=== PATIENT | female | born 1960 | race Caucasian/White ===

== ENCOUNTER 2022-11-05 14:39 | Outpatient (CLI) | payer MEDICARE, SELFPAY ==
--- NOTE | 2022-11-05 | CTR_ITS ---
PROCEDURE INFORMATION: Exam: CT Abdomen And Pelvis Without Contrast Exam date and time: 11/05/2022 3:40 PM Age: 62 years old Clinical indication: Constipation; Abdominal pain; Generalized; Additional info: Diffuse abd pain TECHNIQUE: Imaging protocol: Computed tomography of the abdomen and pelvis without contrast. Total images: 231 Radiation optimization: All CT scans at this facility use at least one of these dose optimization techniques: automated exposure control; mA and/or kV adjustment per patient size (includes targeted exams where dose is matched to clinical indication); or iterative reconstruction. COMPARISON: CR XR KUB [id number] 09/17/2022 9:32 AM RADIATION DOSE METRICS: Total DLP (mGy-cm): 1238.94 FINDINGS: Lungs: Benign granulomatous disease of the lung is noted. Liver: Normal. No mass. Gallbladder and bile ducts: Prior cholecystectomy noted. Pancreas: Normal. No ductal dilation. Spleen: Incidental splenic granulomata are noted. Adrenal glands: Normal. No mass. Kidneys and ureters: Normal. No hydronephrosis. Stomach and bowel: Moderate stool burden. Appendix: No evidence of appendicitis. Intraperitoneal space: Unremarkable. No free air. No significant fluid collection. Vasculature: Incidental phleboliths noted. Mild atherosclerotic disease is evident. Lymph nodes: Unremarkable. No enlarged lymph nodes. Urinary bladder: Unremarkable as visualized. Reproductive: Prior hysterectomy noted. Bones/joints: Multilevel degenerative disc disease is noted with vacuum phenomenon. Osteophytes are noted extending from the vertebrae. No acute spinal pathology is detected. Facet joint degenerative changes are present. Soft tissues: Unremarkable. CT/CT abdomen pelvis wo con [id number] IMPRESSION: 1. Moderate stool burden. 2. No acute intra-abdominal pathology.
== END 2022-11-05 14:40 | disposition home or self-care (01) ==
LOC: RAD 14:40
PROVIDERS: Visit Provider Family Medicine
DX: R10.84 Generalized abdominal pain (principal)
CPT/HCPCS: 74176

== ENCOUNTER → 2023-01-04 10:59 | Outpatient (BNVA) | payer MEDICARE, SELFPAY | PROVIDERS: PCP Family Medicine; Referring Provider Family Medicine; Visit Provider Specialist | DX: G43.711 Chronic migraine without aura, intractable, with status migrainosus (principal); I20.0 Unstable angina; K59.00 Constipation, unspecified; E66.01 Morbid (severe) obesity due to excess calories; Z86.73 Personal history of transient ischemic attack (TIA), and cerebral infarction without residual deficits; Z82.49 Family history of ischemic heart disease and other diseases of the circulatory system | CPT/HCPCS: 99205 ==

== ENCOUNTER 2023-02-26 06:55 | Emergency (ER) | payer MEDICARE, SELFPAY ==
--- NOTE | 2023-02-26 | CT_ITS ---
WS: [id number] PROCEDURE INFORMATION: Exam: CT Head Without Contrast Exam date and time: 02/26/2023 7:33 AM Age: 62 years old Clinical indication: Injury or trauma; Fall; Blunt trauma (contusions or hematomas); With loss of consciousness; Loss of consciousness for 30 minutes or less; Injury date: 2am today; Additional info: Closed head injury TECHNIQUE: Imaging protocol: Computed tomography of the head without contrast. Radiation optimization: All CT scans at this facility use at least one of these dose optimization techniques: automated exposure control; mA and/or kV adjustment per patient size (includes targeted exams where dose is matched to clinical indication); or iterative reconstruction. REPORTING DATA: Count of CT and Cardiac NM exams in prior 12 months: This patient has received [address] and 0 known cardiac nuclear medicine studies in the 12 months prior to the current study. COMPARISON: No relevant prior studies available. RADIATION DOSE METRICS: Total DLP (mGy-cm): 1119.14 FINDINGS: Brain: No acute intracranial hemorrhage or mass effect. There is prominent decreased attenuation in the periventricular white matter, likely from microvascular disease. No definite acute infarct by CT. MRI could be more sensitive/specific for detection, as clinically directed. Cerebral ventricles: Ventricle size is normal for age. Paranasal sinuses: Minimal mucosal thickening in the sphenoid sinus. Included paranasal sinuses otherwise appear essentially clear. Mastoid air cells: No significant acute finding. Bones/joints: No definite acute skull fracture. Soft tissues: Evidence for prominent soft tissue injury/scalp hematoma in the high right occipital region. Vasculature: Vascular calcifications in the internal carotid arteries. CT/CT head wo con* [id number] IMPRESSION: 1. No acute intracranial hemorrhage or mass effect. 2. Changes of microvascular disease. 3. No definite acute infarct by CT, see above. 4. Other findings discussed above.
[2023-02-26 07:01] VITALS: BP 166/102; PULSE 69; RESP 20; TEMP 36.5; O2SAT 98
[2023-02-26 07:06] VITALS: BP 169/102; BP 177/102; BP 183/96
--- NOTE | 2023-02-26 07:21 | XR_ITS ---
WS: [id number] XR cervical spine 3V* [id number] REASON FOR EXAM: neck pain FINDINGS: Difficult evaluation due to body habitus. Normal lordosis and alignment of the cervical spine. Odontoid and vertebral bodies are intact without significant abnormality. Mild narrowing of the intervertebral disc spaces C4-C7. Normal facet joint alignment. XR/XR cervical spine 3V* [id number] IMPRESSION: Somewhat limited examination. Degenerative spondylosis with no acute abnormality identified.
--- NOTE | 2023-02-26 07:21 | XR_ITS ---
WS: [id number] XR chest 1V portable [id number] REASON FOR EXAM: dyspnea/cough FINDINGS: Moderate tortuosity and ectasia of the thoracic aorta. Normal heart size. No active pulmonary parenchymal or pleural disease. Moderate degenerative spondylosis in the mid and lower thoracic spine. XR/XR chest 1V portable [id number] IMPRESSION: No acute chest abnormality.
--- NOTE | 2023-02-26 07:21 | CT_ITS ---
WS: [id number] CT HEAD NONCONTRAST HISTORY: closed head injury TECHNIQUE: Contiguous axial imaging performed through the brain in 2.5 mm imaging. Bone and soft tiss ue windows. Sagittal and coronal reformats reviewed. All CT scans at [facility] use at least one of these dose optimization techniques: automated exposure control; mA and/or kV adjustment per pa tient size (includes targeted exams where dose is matched to clinical indication); or iterative recon struction. DLP: 1119.14 mGy.cm COMPARISON: None available. No acute intracranial hemorrhage, midline shift or mass effect. No significant atrophy. There is moderate low attenuation within the white matter. White matter signa l abnormalities diffuse and bilateral. Ventricles: Normal size with no hydrocephalus. Paranasal sinuses: As visualized are clear. Mastoid air cells: Well pneumatized. Calvarium and scalp: No skull fracture. There is a large acute scalp hematoma centered towards the RIGHT parietal vertex of variable density.
--- NOTE | 2023-02-26 07:37 | W.ED.FALL ---
HPI - Fall General: Chief Complaint: Fall Stated Complaint: fall/back of head/mouth pain Time Seen by Provider: 02/26/23 06:58 Source: patient Mode of arrival: ambulatory History of Present Illness: 62-year-old female presents to the emergency room after a fall. She had gotten up at night she states she usually up many out most of the evenings she does not sleep well she was going to her walk-in closet to get something warmer to wear when she got lightheaded and dizzy that she simply passed out she woke up on the floor states she has a bump on the back of her head her neck does not hurt she has been nauseous but has not vomited. She does take aspirin no other anticoagulants. She is not had any vomiting or diarrhea no history of arrhythmias no history of heart disease she does states she had a TIA several years ago but no further episodes since she is not having difficulty speech swallowing vision or balance now. No previous syncopal episodes in the past. MD complaint: fall Onset (ago): minute(s) Fall from: standing Fall witnessed: no Place fall occurred: home Loss of consciousness: Yes Prolonged down time: unclear Location of injury: head Associated symptoms-after fall: Denies abdominal pain, chest pain, confusion, difficulty walking, headache(s), hematuria, lightheadedness, neck pain, numbness, short of breath, vertigo or weakness Review of Systems Const: Denies: fever(s), chills, body aches, change in appetite, fatigue or malaise ENMT: Denies: throat pain, ear or mastoid pain, nasal discharge or nasal congestion Card: Denies: chest pain or lightheadedness Resp: Denies: dyspnea, productive cough or non-productive cough GI: Denies: abdominal pain, nausea or vomiting : Denies: flank pain, dysuria, urinary frequency, urinary urgency or hematuria Musc: Denies: neck pain Skin/Breast: Denies: rash or pruritus Neuro: Denies: headache(s), difficulty walking, vertigo or confusion Physical Exam Const: GENERAL APPEARANCE: cooperative and comfortable ORIENTATION/CONSCIOUSNESS: Yes awake, Yes oriented to person, Yes oriented to place and Yes oriented to time HENMT: COMMON NORMALS: normocephalic and hearing grossly normal bilaterally HEAD & SCALP: normocephalic Resp: COMMON NORMALS: normal respiratory effort, No retractions, No use of accessory muscles and clear to auscultation bilaterally AUSCULTATION: clear to auscultation bilaterally Cardio: COMMON NORMALS: regular rate, regular rhythm and No murmurs present (Cardio) RATE: regular rate RHYTHM: regular rhythm GI: COMMON NORMALS: Soft to palpation and No hepatosplenomegaly present AUSCULTATION: Yes normoactive bowel sounds PALPATION: Yes Soft to palpation, No Tenderness to palpation present (GI), No Guarding due to palpation present (GI) and Yes No hepatosplenomegaly present Extremity: COMMON NORMALS: normal to inspection, capillary refill normal, no clubbing, cyanosis or edema, no calf tenderness and no pedal edema Neuro: SENSORIUM/ORIENTATION: Yes oriented to person, Yes oriented to place and Yes oriented to time Skin: COMMON NORMALS: no rashes or lesions noted GENERAL SKIN EXAM: no rashes or lesions noted Course Vital Signs: Vital signs: Vital Signs Temperature 97.7 F 02/26/23 07:01 Pulse Rate 60 02/26/23 10:02 Respiratory Rate 17 02/26/23 10:02 Blood Pressure 173/104 02/26/23 10:02 Pulse Oximetry 98 02/26/23 10:02 Oxygen Delivery Me thod 02/26/23 08:09 MDM - Fall Medical Decision Making Labs and imaging reviewed orthostatics normal patient is feeling fine she does not have any intracranial bleeding on her CT her C-spine is cleared we will discharge her home we will get a call in amlodipine for 5 mg daily and have her follow-up with her primary care doctor. Medical Records I reviewed the patient's medical records. Lab Data I reviewed the patient's lab results. 02/26/23 07:47 02/26/23 07:47 Radiology Impressions Cervical Spine X-Ray 02/26/23 07:21 IMPRESSION: Somewhat limited examination. Degenerative spondylosis with no acute abnormality identified. Chest X-Ray 02/26/23 07:21 IMPRESSION: No acute chest abnormality. Head CT 02/26/23 07:21 IMPRESSION: 1. No acute intracranial hemorrhage or edema. 2. Large acute RIGHT parietal scalp hematoma at the vertex. 3. Moderate small vessel ischemic type changes. Laboratory Results WBC 9.9 10^3/uL (4.0-10.0) 02/26/23 07:47 RBC 4.95 10^6/uL (4.1-5.3) 02/26/23 07:47 Hgb 14.4 g/dL (11.5-15.3) 02/26/23 07:47 Hct 44.4 % (37.0-47.0) 02/26/23 07:47 MCV 89.7 fl (81-99) 02/26/23 07:47 MCH 29.1 pg (28.0-34.0) 02/26/23 07:47 MCHC 32.4 g/dL (30.0-36.0) 02/26/23 07:47 RDW 12.6 % (12.1-15.1) 02/26/23 07:47 Plt Count 212 10^3/cmm (130-400) 02/26/23 07:47 MPV 9.7 fL (7.4-10.4) 02/26/23 07:47 Neut % (Auto) 80.0 % 02/26/23 07:47 Lymph % (Auto) 12.4 % 02/26/23 07:47 [place] % (Auto) 5.3 % 02/26/23 07:47 Eos % (Auto) 1.3 % 02/26/23 07:47 Baso % (Auto) 0.7 % 02/26/23 07:47 Neut # (Auto) 7.91 10^3/uL (1.8-7.7) H 02/26/23 07:47 Lymph # (Auto) 1.2 10^3/uL (0.8-4.8) 02/26/23 07:47 [place] # (Auto) 0.5 10^3/uL (0.2-0.9) 02/26/23 07:47 Eos # (Auto) 0.1 10^3/uL (0.0-0.8) 02/26/23 07:47 Baso # (Auto) 0.1 10^3/uL (0.0-0.1) 02/26/23 07:47 Nucleated RBC % (auto) 0 % 02/26/23 07:47 Nucleated RBCs # 0.0 /100WBC 02/26/23 07:47 Sodium 138 mmol/L (136-145) 02/26/23 07:47 Potassium 4.1 mmol/L (3.5-5.1) 02/26/23 07:47 Chloride 103 mmol/L (98-107) 02/26/23 07:47 Carbon Dioxide 23 mmol/L (22-29) 02/26/23 07:47 Anion Gap 16.1 (5-19) 02/26/23 07:47 BUN 15 mg/dL (8-23) 02/26/23 07:47 Creatinine 0.9 mg/dL (0.5-0.9) 02/26/23 07:47 GFR Calculation 63.7 mL/min (90-130) L 02/26/23 07:47 Glucose 123 mg/dL (65-115) H 02/26/23 07:47 Calculated Osmolality 288 mOsm/kg (285-295) 02/26/23 07:47 Calcium 9.8 mg/dL (8.5-10.5) 02/26/23 07:47 Total Bilirubin 0.2 mg/dL (0.15-1.2) 02/26/23 07:47 AST 27 U/L (0-32) 02/26/23 07:47 ALT 30 U/L (0-33) 02/26/23 07:47 Alkaline Phosphatase 101 U/L (35-105) 02/26/23 07:47 Troponin T Baseline 9 ng/L (0-10) 02/26/23 07:47 Troponin T 120 Minute 8.94 ng/L (0-10) 02/26/23 09:30 Delta Troponin T -0.06 ABS# (0-10) L 02/26/23 09:30 Total Protein 7.7 g/dL (6.6-8.7) 02/26/23 07:47 Albumin 4.5 g/dL (3.5-5.2) 02/26/23 07:47 Globulin 3.2 g/dL (1.3-4.6) 02/26/23 07:47 Discharge Plan Discharge Patient Disposition: Home Clinical Impression: Syncope Condition: Stable Prescriptions: No Action topiramate 100 mg tablet 100 mg PO DAILY gabapentin 300 mg capsule 300 mg PO DAILY aspirin 325 mg tablet 325 mg PO DAILY coenzyme Q10 [Co Q-10] 200 mg capsule 200 mg PO DAILY cholecalciferol (vitamin D3) 50 mcg (2,000 unit) capsule 50 mcg PO DAILY pramipexole 0.25 mg tablet 0.25 mg PO DAILY melatonin 10 mg tablet 10 mg PO DAILY rosuvastatin 20 mg tablet 20 mg PO DAILY buspirone 7.5 mg tablet 7.5 mg PO BID Emgality Pen 120 mg/mL pen injector 240 mg SUBCUT ONCE Qty: 2 0RF Discharge Orders: Discharge ED (Routine); Ordered 02/26/23 Ordered By: Carlos Manuel Lunsford Referrals: Fred Diaz MD [Primary Care Provider] - Discharge Diet: Usual diet Discharge Activity: Resume usual activity Patient Instructions: Opioid Safety, Pain Management Activity Restrictions/Additional Instructions: You are seen today after syncopal episode. CT of your head and x-rays your neck were normal and the rest of your laboratory studies were unremarkable. We will discharge you home with an outpatient echocardiogram and a 48-hour Holter monitor if you have recurrent symptoms return to the emergency room. Coding Level of Care Code ED Information Technology Advisor for Andreina Ledbetter
[2023-02-26 07:56] LABS: Basophils # 0.1 10^3/uL (0.0-0.1); Basophils % 0.7 %; Eosinophils # 0.1 10^3/uL (0.0-0.8); Eosinophils % 1.3 %; Hematocrit 44.4 % (37.0-47.0); Hemoglobin 14.4 g/dL (11.5-15.3); Lymphocytes # 1.2 10^3/uL (0.8-4.8); Lymphocytes % 12.4 %; Mean Corpuscular HGB Conc 32.4 g/dL (30.0-36.0); Mean Corpuscular Hemoglobin 29.1 pg (28.0-34.0); Mean Corpuscular Volume 89.7 fl (81-99); Mean Platelet Volume 9.7 fL (7.4-10.4); Monocytes # 0.5 10^3/uL (0.2-0.9); Monocytes % 5.3 %; Neutrophils # 7.91 10^3/uL (1.8-7.7); Nucleated Red Blood Cells % 0 %; Platelet Count 212 10^3/cmm (130-400); Red Blood Count 4.95 10^6/uL (4.1-5.3); Red Cell Distribution Width 12.6 % (12.1-15.1); White Blood Count 9.9 10^3/uL (4.0-10.0)
[2023-02-26 08:09] VITALS: O2SAT 96
[2023-02-26 08:12] LABS: Alanine Aminotransferase 30 U/L (0-33); Albumin Level 4.5 g/dL (3.5-5.2); Alkaline Phosphatase 101 U/L (35-105); Anion Gap 16.1 (5-19); Aspartate Amino Transferase 27 U/L (0-32); Blood Urea Nitrogen 15 mg/dL (8-23); Calcium 9.8 mg/dL (8.5-10.5); Carbon Dioxide 23 mmol/L (22-29); Chloride 103 mmol/L (98-107); Globulin 3.2 g/dL (1.3-4.6); Glomerular Filtration Rate 63.7 mL/min (90-130); Glucose 123 mg/dL (65-115); Osmolality Calculated 288 mOsm/kg (285-295); Potassium 4.1 mmol/L (3.5-5.1); Sodium 138 mmol/L (136-145); Total Bilirubin 0.2 mg/dL (0.15-1.2); Total Protein 7.7 g/dL (6.6-8.7)
[2023-02-26 08:13] LABS: Troponin(5th) Baseline 9 ng/L (0-10)
--- NOTE | 2023-02-26 08:30 | ECG_ITS ---
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 Measurements Intervals [place] Rate: 50 P: 16 MT: 194 QRS: 45 QRSD: 100 T: 59 QT: 415 QTc: 379 Interpretive Statements SINUS BRADYCARDIA No previous ECG available for comparison Electronically Signed On 02-26-2023 21:23:37 CDT by Catalina Naik M.D. [id number]
--- NOTE | 2023-02-26 09:22 | ECG_ITS ---
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 Measurements Intervals [place] Rate: 51 P: -14 [place]: 164 QRS: 29 QRSD: 89 T: 78 QT: 407 QTc: 377 Interpretive Statements SINUS BRADYCARDIA Compared to ECG 02/26/2023 08:30:16 No significant changes Electronically Signed On 02-26-2023 21:39:30 CDT by Catalina Naik M.D. [id number]
[2023-02-26 09:56] LABS: Troponin 5 2HR 8.94 ng/L (0-10)
[2023-02-26 10:02] VITALS: BP 173/104; PULSE 60; RESP 17; O2SAT 98
[2023-02-26 10:02] LABS: Troponin 5 2HR Delta -0.06 ABS# (0-10)
--- NOTE | 2023-03-01 09:04 | DCPLANNER ---
Addendum entered by Zabrina Hills 03/25/23 09:30: Patient had an appointment with heart care - patient did not attend appointment Patient had an echo scheduled - patient did attend appointment. Addendum entered by Zabrina Hills 03/04/23 07:42: Patient has a follow up appointment scheduled for Wednesday, March 22, 2023 at heart care for a 48 hour halter monitor. Original Note: manager leadership development had message to schedule an outpatient echo cardiogram and a 48 hour halter monitor for patient. manager leadership development faxed signed orders to centralized scheduling and heart care, who will call patient with appointment information.
== END 2023-02-26 10:03 | disposition home or self-care (01) ==
PROVIDERS: Emergency Provider Family Medicine; PCP Family Medicine
DX: R55 Syncope and collapse (principal); Z79.82 Long term (current) use of aspirin
CPT/HCPCS: 36415; 70450; 71045; 72040; 80053; 84484; 85025; 93005; 99285

== ENCOUNTER 2023-03-12 08:11 | Outpatient (CLI) | payer MEDICARE, SELFPAY ==
--- NOTE | 2023-03-12 08:33 | USCV_ITS ---
Nadine Gamez Age: 62 Gender: F : 1960 Exam Date: 03/12/2023 09:09 Ordering Phys: Carlos Manuel Lunsford DO Technologist: ERICA [place] [facility] [place]: SYNC[place] BP: 149 / 90 HR: 53 Rhythm: Sinus Technical Quality: Adequate MEASUREMENTS (Male / Female) Normal Values 2D ECHO LVOT Diameter 2.0 cm LV Ejection Fraction MOD 2C 66.2 % LV Ejection Fraction 2C AL 68.1 % LA Diameter 2.7 cm LA Width 2.6 cm LA Height 4.5 cm RA Width 2.4 cm RA Height 3.6 cm Aorta at Sinotubular Diameter 1.8 cm IVC Diameter 1.3 cm M-MODE Aortic Annulus Diameter 2.5 cm LA Ao Ratio MM 0.9 MV E Point Septal Separation 1.4 cm DOPPLER AV Peak Velocity 165.0 cm/s LVOT Peak Velocity 111.0 cm/s AV Area Cont Eq vti 2.2 cm squared AV Area Cont Eq pk 2.1 cm squared MV Peak Velocity 103.0 cm/s MV Area PHT 3.5 cm squared Mitral E to A Ratio 0.8 MV E' Velocity 49.0 cm/s Mitral E to MV E' Ratio 8.7 Mitral E to LV E' Lateral Ratio 7.6 Mitral E to LV E' Septal Ratio 10.1 TR Peak Velocity 216.8 cm/s TR Peak Gradient 18.8 mmHg TR Mean Velocity 186.9 cm/s TR Mean Gradient 14.7 mmHg TR Velocity Time Integral 79.4 cm TV Peak E Velocity 63.0 cm/s Right Atrial Pressure 3.0 mmHg Pulmonary Artery Systolic Pressu 21.8 mmHg FINDINGS Left Ventricle Normal left ventricular size, systolic function and wall thickness, with no regional wall motion abnormalities. Grade I/IV diastolic dysfunction (abnormal relaxation filling pattern), normal to mildly elevated filling pressures. Left ventricular ejection fraction is estimated at 60 %. Right Ventricle Normal right ventricular size and systolic function. Normal right ventricular systolic pressure. Right Atrium The right atrium is normal in size. Left Atrium The left atrium is normal in size. Mitral Valve Structurally normal mitral valve. Moderate mitral valve regurgitation. Aortic Valve Structurally normal aortic valve without significant sclerosis or stenosis. There is no aortic regurgitation. Tricuspid Valve Structurally normal tricuspid valve without significant stenosis or regurgitation. Pulmonary artery systolic pressure is normal. Pulmonic Valve Pulmonic valve not well visualized. Pericardium Normal pericardium without effusion. Aorta Normal ascending aorta dimension. IVC The inferior vena cava appears normal. CONCLUSIONS Normal left ventricular size, systolic function and wall thickness, with no regional wall motion abnormalities. Grade I/IV diastolic dysfunction (abnormal relaxation filling pattern), normal to mildly elevated filling pressures. Left ventricular ejection fraction is estimated at 60 %. Structurally normal mitral valve. Moderate mitral valve regurgitation. There are no prior echocardiogram studies to compare. Dr. Kory Manrique MD (Electronically Signed) Final Date: 12 March 2023 12:29 S
== END 2023-03-12 08:12 | disposition home or self-care (01) ==
PROVIDERS: PCP Family Medicine; Visit Provider Family Medicine
DX: R55 Syncope and collapse (principal)
CPT/HCPCS: 93306

== ENCOUNTER → 2023-04-12 09:31 | Outpatient (BNVA) | payer MEDICARE, SELFPAY | PROVIDERS: PCP Family Medicine; Visit Provider Internal Medicine | DX: I20.0 Unstable angina (principal); R55 Syncope and collapse | CPT/HCPCS: 93242 ==

== ENCOUNTER → 2023-05-20 07:53 | Outpatient (BNVA) | payer MEDICARE, SELFPAY | PROVIDERS: PCP Family Medicine; Visit Provider Specialist | DX: G43.711 Chronic migraine without aura, intractable, with status migrainosus (principal); R55 Syncope and collapse; G25.81 Restless legs syndrome | CPT/HCPCS: 64615; 99214; J0585 ==

== ENCOUNTER → 2023-06-23 10:40 | Outpatient (BNVA) | payer MEDICARE, SELFPAY | PROVIDERS: PCP Family Medicine; Visit Provider Internal Medicine Cardiovascular Disease | DX: R55 Syncope and collapse (principal); G43.711 Chronic migraine without aura, intractable, with status migrainosus; I10 Essential (primary) hypertension; R00.1 Bradycardia, unspecified | CPT/HCPCS: 99203; 99204 ==

== ENCOUNTER 2023-07-15 10:19 | Outpatient (CLI) | payer MEDICARE, SELFPAY ==
--- NOTE | 2023-07-15 | ECG_ITS ---
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 Interpretive Statements NAME OF STUDY: EXERCISE SESTAMIBI STRESS TEST INDICATION: Chest Pressure, PROCEDURE: The baseline electrocardiogram showed normal sinus rhythm with normal ST-Ts. At the baseline, the patient's blood pressure was 154/97 mm Hg with a heart rate of 87. The patient exercised for 2 minutes and 26 seconds on a standard Aj protocol. Patient attained a maximum heart rate of 156 beats per minute(98% of the maximum predicted heart rate) with a blood pressure at the peak exercise of 160/109 mm Hg. The EKG at the peak exercise revealed no significant changes. Patient did not have any chest pain or any significant arrhythmis with the exercise Sestamibi was injected 1 minute prior to the peak exercise During the recovery phase, there were no new changes. Blood pressure at the end of the recovery phase was 151/101 mm Hg with a heart rate of 91 per minute. CONCLUSION: 1. No significant EKG changes with the treadmill exercise 2. No exercise-induced chest pain or cardiac arrhythmia 3. Impaired exercise tolerance, attained a maximum of 4.6 METs 4. Sestamibi/Sestamibi perfusion results pending; see separate report. Electronically Signed On 07-21-2023 14:52:40 CDT by Catalina Naik M.D. [id number]
[2023-07-15 10:30] VITALS: BMI 31.4
--- NOTE | 2023-07-15 10:49 | NMCV_ITS ---
NM lo perf SPECT r/s* [id number] Nadine Gamez Age: 62 Gender: F : 1960 Exam Date: 07/15/2023 11:33 Ordering Phys: Catalina Naik MD ([email or web address]) Technologist: ESTER Boss Exam Location: [facility] Indications: coronary angioplasty status STRESS TEST Please see separate stress [facility] for full findings IMAGE PROTOCOL Rest/Stress 1 Exercise Day Radiopharmaceutical Dose (mCi) Administration Site Administered by Rest: Tc-99m 10.5 IV ESTER Kang Sestamibi Stress:Tc-99m 32.9 IV ESTER Kang Sestamibi Rest: 15-Jul-2023 60 Discovery 630 Stress: 15-Jul-2023 30 Discovery 630 Radiopharmaceutical was injected at 86 % maximum heart rate. Images obtained in supine and prone position. SPECT RESULTS Technical Quality: Excellent Raw Data Analysis: Normal Image Corrections: No attenuation or motion correction applied Summed Stress Score: 3 Summed Rest Score: 6 Summed Difference Score: 0 PERFUSION FINDINGS Small area of slightly decreased tracer uptake in the mid and apical inferior and left ventricular apex. No significant reversibility was noted in this region. FUNCTIONAL RESULTS (calculated via Gated SPECT) Stress Image LV EF (%): 69 Stress EDV (mL):88 TID: 1.08 Stress ESV (mL):27 FUNCTIONAL FINDINGS: Segmental wall motion analysis revealing no gross wall motion normalities IMPRESSIONS 1. Myocardial perfusion imaging revealing small area of persistent decreased tracer uptake involving the inferior wall and the LV apex, suggesting myocardial scarring versus attrition artifact. 2. Normal LV ejection fraction of 69%. 3. LV wall motion analysis revealing no gross wall motion abnormalities. 4. Normal LV volume Low probability for coronary ischemia, based on the above findings. No similar previous studies are available for comparison Dr Catalina Naik MD [facility] (Electronically Signed) Final Date: 16 July 2023 16:41 S
[2023-07-15 12:15] VITALS: BP 151/100; PULSE 97
== END 2023-07-15 10:20 | disposition home or self-care (01) ==
PROVIDERS: PCP Family Medicine; Visit Provider Internal Medicine Cardiovascular Disease
DX: R07.9 Chest pain, unspecified (principal); Z98.61 Coronary angioplasty status
CPT/HCPCS: 36415; 78452; 93017; A9500

== ENCOUNTER → 2023-08-19 11:48 | Outpatient (BNVA) | payer MEDICARE, SELFPAY | PROVIDERS: PCP Family Medicine; Visit Provider Specialist | DX: G43.711 Chronic migraine without aura, intractable, with status migrainosus (principal); R55 Syncope and collapse | CPT/HCPCS: 64615; J0585 ==

== ENCOUNTER → 2023-11-08 09:29 | Outpatient (BNVA) | payer MEDICARE, SELFPAY | PROVIDERS: PCP Family Medicine; Visit Provider Internal Medicine Cardiovascular Disease | DX: I10 Essential (primary) hypertension (principal); R55 Syncope and collapse; R00.1 Bradycardia, unspecified; J11.1 Influenza due to unidentified influenza virus with other respiratory manifestations | CPT/HCPCS: 99213 ==

== ENCOUNTER → 2023-11-25 11:21 | Outpatient (BNVA) | payer MEDICARE, SELFPAY | PROVIDERS: PCP Family Medicine; Visit Provider Specialist | DX: G43.711 Chronic migraine without aura, intractable, with status migrainosus (principal) | CPT/HCPCS: 64615 ==

== ENCOUNTER 2024-02-15 10:17 | Outpatient (CLI) | payer MEDICARE, SELFPAY ==
--- NOTE | 2024-02-15 10:38 | MM_ITS ---
WS: [id number] BILATERAL 3D TOMOSYNTHESIS DIGITAL SCREENING MAMMOGRAPHY WITH CAD CLINICAL INFORMATION: SCREENING HISTORY: Screening mammogram. No current complaints. COMPARISON: None. TECHNIQUE: Bilateral CC and MLO views. FINDINGS: The breasts are composed of heterogeneous fibroglandular density tissue, which can limit the detectio n of small underlying mass lesions. No suspicious mass, asymmetry, calcifications, or architectural d istortion. No evidence of malignancy. Incidental punctate and lucent centered calcifications. IMPRESSION: MM/[place] [id number] BI-RADS: 2-Benign FOLLOW UP: 1 Year Follow-up Recommend return to annual screening mammography.
== END 2024-02-15 10:18 | disposition home or self-care (01) ==
LOC: RAD 10:20
PROVIDERS: PCP Family Medicine; Visit Provider Family Medicine
DX: Z12.31 Encounter for screening mammogram for malignant neoplasm of breast (principal); R92.30 Dense breasts, unspecified
CPT/HCPCS: 77063; 77067

== ENCOUNTER → 2024-02-24 12:13 | Outpatient (BNVA) | payer MEDICARE, SELFPAY | PROVIDERS: PCP Family Medicine; Visit Provider Specialist | DX: M96.1 Postlaminectomy syndrome, not elsewhere classified (principal); M54.81 Occipital neuralgia; G43.711 Chronic migraine without aura, intractable, with status migrainosus | CPT/HCPCS: 64615; 99213; J0585 ==

== ENCOUNTER → 2024-03-23 08:19 | Outpatient (BNVA) | payer MEDICARE, SELFPAY | PROVIDERS: PCP Family Medicine; Visit Provider Specialist | DX: M54.81 Occipital neuralgia (principal); G43.711 Chronic migraine without aura, intractable, with status migrainosus; M96.1 Postlaminectomy syndrome, not elsewhere classified | CPT/HCPCS: 64405; 64450; J1010; J3490 ==

== ENCOUNTER 2024-04-10 08:26 | Outpatient (CLI) | payer MEDICARE, SELFPAY ==
--- NOTE | 2024-04-10 08:45 | MR_ITS ---
WS: [id number] MRI CERVICAL SPINE NONCONTRAST TECHNIQUE: Sagittal T1, T2 and STIR imaging. Axial T2, gradient, and fiesta imaging. CLINICAL INFORMATION: M54.2 - Cervicalgia COMPARISON: None. FINDINGS: Straightening of the normal cervical lordosis. 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 Disc bulging wor se at C3-C4 and C4-C5 with mild central canal stenosis C3-C4 and moderate to severe central canal joey nosis C4-C5 with indentation and flattening of the cervical cord. C2-C3: Congenital segmentation anomaly. Spinal canal and foramina are patent. C3-C4: Mild disc bulging with slight effacement of the ventral thecal sac. Mild central canal stenosi s. Mild bilateral bony foraminal narrowing. Mild facet arthropathy. C4-C5: Mild disc bulge with indentation and slight flattening of the cervical cord with moderate cent ral canal stenosis. Moderate bilateral bony foraminal narrowing RIGHT greater than LEFT. Mild to mode rate facet arthropathy. C5-C6: Mild disc bulge with endplate ridging. Mild bilateral foraminal narrowing. Moderate facet arth ropathy. C6-C7: Congenital segmentation anomaly. Spinal canal and foramen are patent. C7-T1: No significant disc bulging. Spinal canal and foramen are patent. T1-T2: Mild bilateral bony foraminal narrowing. Mild facet arthropathy. Spinal canal and foramen are patent. Tiny central protrusions at T2-3 and T3-4. Small RIGHT thyroid nodule measuring 6 mm. Visualized brain stem structures: Normal. Prevertebral soft tissues: Normal. MR/MR cervical spin wo con* [id number] IMPRESSION: 1. Straightening of the normal cervical lordosis. Congenital segmentation anom kayla C2-3 and C6-7 2. Mild central canal stenosis C3-C4 with moderate to severe central canal joey nosis C4-5 with indentation and slight flattening of the cervical cord. 3. Moderate bilateral C4-5 bony foraminal narrowing. 4. Otherwise mild bony foraminal narrowing described above.
== END 2024-04-10 08:27 | disposition home or self-care (01) ==
LOC: RAD 08:31
PROVIDERS: PCP Family Medicine; Visit Provider Specialist
DX: M48.02 Spinal stenosis, cervical region (principal); Q76.49 Other congenital malformations of spine, not associated with scoliosis; M99.61 Osseous and subluxation stenosis of intervertebral foramina of cervical region
CPT/HCPCS: 72141

== ENCOUNTER → 2024-05-04 12:02 | Outpatient (BNVA) | payer MEDICARE, SELFPAY | PROVIDERS: PCP Family Medicine; Visit Provider Specialist | DX: M54.81 Occipital neuralgia (principal); G43.711 Chronic migraine without aura, intractable, with status migrainosus; M96.1 Postlaminectomy syndrome, not elsewhere classified; M76.32 Iliotibial band syndrome, left leg | CPT/HCPCS: 64405; 99214; J1010; J3490 ==

== ENCOUNTER → 2024-06-01 11:29 | Outpatient (BNVA) | payer MEDICARE, SELFPAY | PROVIDERS: PCP Family Medicine; Visit Provider Specialist | DX: M48.02 Spinal stenosis, cervical region (principal); M96.1 Postlaminectomy syndrome, not elsewhere classified; M54.81 Occipital neuralgia; G43.711 Chronic migraine without aura, intractable, with status migrainosus; R03.0 Elevated blood-pressure reading, without diagnosis of hypertension | CPT/HCPCS: 64615; 99214; J0585 ==

== ENCOUNTER → 2024-06-12 12:55 | Outpatient (BNVA) | payer MEDICARE, SELFPAY | PROVIDERS: PCP Family Medicine; Visit Provider Nurse Practitioner Family | DX: E66.01 Morbid (severe) obesity due to excess calories (principal); I10 Essential (primary) hypertension; E78.5 Hyperlipidemia, unspecified; R53.83 Other fatigue; Z76.89 Persons encountering health services in other specified circumstances; K59.01 Slow transit constipation; R23.2 Flushing | CPT/HCPCS: 80053; 80061; 84443; 85025 ==

== ENCOUNTER → 2024-06-15 12:24 | Outpatient (BNVA) | payer MEDICARE, SELFPAY | PROVIDERS: PCP Nurse Practitioner Family; Visit Provider Orthopaedic Surgery | DX: M47.892 Other spondylosis, cervical region (principal); M54.2 Cervicalgia; M47.22 Other spondylosis with radiculopathy, cervical region | CPT/HCPCS: 72040; 99204 ==

== ENCOUNTER → 2024-08-24 10:40 | Outpatient (BNVA) | payer MEDICARE, SELFPAY | PROVIDERS: PCP Nurse Practitioner Family; Visit Provider Specialist | DX: M96.1 Postlaminectomy syndrome, not elsewhere classified (principal); M54.81 Occipital neuralgia; G43.711 Chronic migraine without aura, intractable, with status migrainosus; R03.0 Elevated blood-pressure reading, without diagnosis of hypertension; F43.10 Post-traumatic stress disorder, unspecified; R53.83 Other fatigue; R59.1 Generalized enlarged lymph nodes; R55 Syncope and collapse; E55.9 Vitamin D deficiency, unspecified; M81.0 Age-related osteoporosis without current pathological fracture | CPT/HCPCS: 36415; 64615; 82607; 82652; 82746; 85651; 86160; 86162; 86200; 86235; 86255; 86376; 99214; J0585 ==

== ENCOUNTER → 2024-09-15 07:33 | Outpatient (BNVA) | payer MEDICARE, SELFPAY | PROVIDERS: PCP Nurse Practitioner Family | DX: R10.9 Unspecified abdominal pain (principal) | CPT/HCPCS: 81000 ==

== ENCOUNTER → 2024-12-08 10:06 | Outpatient (BNVA) | payer MEDICARE, SELFPAY | PROVIDERS: PCP Nurse Practitioner Family; Visit Provider Specialist | DX: G43.711 Chronic migraine without aura, intractable, with status migrainosus (principal); M47.22 Other spondylosis with radiculopathy, cervical region; M96.1 Postlaminectomy syndrome, not elsewhere classified; M54.81 Occipital neuralgia; R03.0 Elevated blood-pressure reading, without diagnosis of hypertension; F43.10 Post-traumatic stress disorder, unspecified; R53.83 Other fatigue; R59.1 Generalized enlarged lymph nodes | CPT/HCPCS: 64615; 99213; J0585 ==

== ENCOUNTER → 2025-03-16 09:26 | Outpatient (BNVA) | payer MEDICARE, SELFPAY | PROVIDERS: PCP Nurse Practitioner Family; Visit Provider Specialist | DX: M96.1 Postlaminectomy syndrome, not elsewhere classified (principal); M54.81 Occipital neuralgia; G43.711 Chronic migraine without aura, intractable, with status migrainosus; R03.0 Elevated blood-pressure reading, without diagnosis of hypertension; F43.10 Post-traumatic stress disorder, unspecified; R53.83 Other fatigue; R59.1 Generalized enlarged lymph nodes; R55 Syncope and collapse; E55.9 Vitamin D deficiency, unspecified; M81.0 Age-related osteoporosis without current pathological fracture | CPT/HCPCS: 64615; 99212; J0585; J9999 ==

== ENCOUNTER → 2025-04-24 14:31 | Outpatient (BNVA) | payer MEDICARE, SELFPAY | PROVIDERS: PCP Family Medicine; Visit Provider Family Medicine | DX: I10 Essential (primary) hypertension (principal); E78.5 Hyperlipidemia, unspecified; G25.81 Restless legs syndrome; E11.9 Type 2 diabetes mellitus without complications | CPT/HCPCS: 80053; 80061; 82728; 85025 ==

== ENCOUNTER 2025-04-27 08:09 | Outpatient (CLI) | payer MEDICARE, SELFPAY ==
--- NOTE | 2025-04-27 08:11 | MM_ITS ---
WS: [id number] BILATERAL SCREENING DIGITAL TOMOSYNTHESIS MAMMOGRAM WITH CAD HISTORY: SCREENING COMPARISON: 02/15/2024 Bilateral CC and MLO views with tomosynthesis and synthetic mammography submitted. Computer aided detection analyzed. Breast composition: The breasts are heterogeneously dense, which may obscure small masses. No suspicious masses, microcalcifications or architectural distortion. Benign calcifications in each breast. Dense asymmetries are stable. MM/MM scr tomosynthesis [id number] IMPRESSION: BI-RADS: 2 - Benign FOLLOW UP: 1 Year Follow-up
== END 2025-04-27 08:10 | disposition home or self-care (01) ==
PROVIDERS: PCP Family Medicine; Visit Provider Family Medicine
DX: Z12.31 Encounter for screening mammogram for malignant neoplasm of breast (principal); R92.333 Mammographic heterogeneous density, bilateral breasts; R92.1 Mammographic calcification found on diagnostic imaging of breast; N64.89 Other specified disorders of breast
CPT/HCPCS: 77063; 77067

== ENCOUNTER → 2025-06-14 08:52 | Outpatient (BNVA) | payer MEDICARE, SELFPAY | PROVIDERS: PCP Family Medicine; Visit Provider Specialist | DX: G43.711 Chronic migraine without aura, intractable, with status migrainosus (principal) | CPT/HCPCS: 64615; J0585; J9999 ==

== ENCOUNTER → 2025-06-29 08:22 | Outpatient (BNVA) | payer MEDICARE, SELFPAY | PROVIDERS: PCP Family Medicine; Visit Provider Student in an Organized Health Care Education/Training Program | DX: Z12.11 Encounter for screening for malignant neoplasm of colon (principal) | CPT/HCPCS: 99024; 99204 ==

== ENCOUNTER 2025-08-01 06:51 | Day surgery (SDC) | payer MEDICARE, SELFPAY ==
[2025-08-01 07:07] VITALS: BP 172/97; PULSE 62; RESP 18; TEMP 36.6; O2SAT 97; BMI 32.6
--- NOTE | 2025-08-01 07:48 | ANES.PREANE2 ---
Pre-Anesthetic Assessment Height/Weight: Height 1.73 m Weight 97.522 kg Temp Pulse Resp BP Pulse Ox O2 Del Method 97.9 F 62 18 172/97 97 Room Air 08/01/25 07:07 08/01/25 07:07 08/01/25 07:07 08/01/25 07:07 08/01/25 07:07 08/01/25 07:07 Preop Diagnosis: GERD, Screen Operation Date: 08/01/25 08:00 Proposed Procedures p EGD EGD with Biopsy [id number] G0105 Z12.11 R12(Not Applicable) - Chay Winter MD s Colonoscopy(Not Applicable) - Chay Winter MD Was Beta Bruce taken within 24 hours: Yes Was Clonidine taken within 24 hours: N/A Last intake: Intake Last Liquid Date 07/31/25 Last Liquid Time 22:00 Last Solid Date 07/28/25 Last Solid Time 15:00 Social No alcohol and No tobacco Exam alert, oriented x 3, clear to auscultation bilaterally and regular rate & rhythm Airway Cervical ROM: within normal limits Mallampati: Class II Dentition: full Pulmonary None reported CV/HEM Hypertension Sinus bradycardia, pt. reports syncopal episodes and that cardiology was not going to do an intervention. Last cardiology note reads sinus gerry on monitor with a few ectopic beats. None reported Hepatic None reported GI Gastroesophageal Reflux Disease Metabolic Hyperlipidemia [facility] None reported Neuropsych Anxiety and Headache Anesthetic Plan ASA status: 3 Anesthesia: MAC Risk of > 500 ml blood loss (7ml/kg in children): No Medications/Allergies Home Medications ?Medication ?Instructions ?Recorded ?Confirmed ?Last Taken ?Type aspirin 325 mg tablet 325 mg PO DAILY 10/06/22 08/01/25 07/26/25 History buspirone 7.5 mg tablet 7.5 mg PO BID 10/06/22 08/01/25 08/01/25 History coenzyme Q10 200 mg capsule (Co 200 mg PO DAILY 10/06/22 08/01/25 07/26/25 History Q-10) rosuvastatin 20 mg tablet 20 mg PO DAILY 10/06/22 08/01/25 07/31/25 History onabotulinumtoxinA 100 unit 155 unit IM .every 3 mo 11/08/23 08/01/25 07/03/25 History solution for injection (Botox) pramipexole 0.25 mg tablet 0.25 mg PO .qhs 04/02/25 08/01/25 07/31/25 History pantoprazole 40 mg tablet,delayed 40 mg PO BID 30 days #60 tabs 06/29/25 08/01/25 08/01/25 Rx release lactulose 10 gram/15 mL oral 10 g (15 mL) PO DAILY PRN 07/18/25 08/01/25 07/29/25 Rx solution constipation #300 mL propranolol 20 mg tablet 40 mg (2 x 20 mg) PO BID #60 tabs 07/25/25 08/01/25 08/01/25 Rx amlodipine 5 mg tablet 5 mg PO DAILY 07/26/25 08/01/25 08/01/25 History topiramate 100 mg tablet 100 mg PO DAILY 07/26/25 08/01/25 07/31/25 History Allergies Allergy/AdvReac Type Severity Reaction Status Date / Time amoxicillin (From Augmentin) Allergy heart Verified 08/01/25 07:02 racing clavulanic acid (From Allergy heart Verified 08/01/25 07:02 Augmentin) racing red dye Allergy ALGY-Difficulty Verified 08/01/25 07:02 Breathing sulfacetamide (From Allergy unknown Verified 08/01/25 07:02 Sulfacet-R) sulfur (From Sulfacet-R) Allergy unknown Verified 08/01/25 07:02 sumatriptan (From Imitrex) Allergy Heart Verified 08/01/25 07:02 Racing tamsulosin Allergy Unknown Verified 08/01/25 07:02 trazodone Allergy hives Verified 08/01/25 07:02 Current Medications Generic Name Dose Route Start Last Admin Trade Name Freq PRN Reason Stop Dose Admin Sodium Chloride 1,000 mls @ 15 mls/hr 08/01/25 06:53 08/01/25 07:14 Sodium Chloride 0.9% IV 08/02/25 06:52 15 mls/hr .Q24H PRN Administration COLONOSCOPY FLUIDS PFSH Anesthesia Medical History Restless legs syndrome Cervical spondylosis with radiculopathy Chronic migraine without aura, intractable, with status migrainosus Bilateral occipital neuralgia Anxiety Hyperlipidemia Morbid obesity Posttraumatic stress disorder History of uterine cancer Hypertension Surgical History History of meniscectomy of left knee History of total right knee replacement History of lumpectomy of left breast benign History of bilateral breast reduction surgery History of appendectomy History of tonsillectomy and adenoidectomy History of cervical spinal surgery C6/7 History of cholecystectomy History of total hysterectomy with bilateral salpingo-oophorectomy (BSO) uterine cancer Family History Mother Dementia Diabetes CAD (coronary artery disease) Father Normal pressure hydrocephalus Brother CAD (coronary artery disease) Social History Smoking and tobacco/nicotine status: former use of tobacco/nicotine Quit status (tobacco/nicotine): has quit using Year quit tobacco: 2019 Alcohol intake: never Substance/Drug Use: current Substance/Drug use frequency: few times a month Household members: spouse Marital status: Number of children: 1 Number of grandchildren: 3 Leisure activites: other Leisure activities details: chayito asencio Special jose elias needs: No Agree to transfusion: Yes Data Anesthesia Cardiac Studies: Echocardiogram 03/12/23 Sestamibi Stress Test (Cardiology) 07/15/23 Cardiac Event Monitor 06/29/23 Holter Monitor 04/12/23
--- NOTE | 2025-08-01 07:57 | W.PM.OPSFHP ---
Same Day Surgery H&P Indication for Procedure/HPI DATE OF PROCEDURE: August 01, 2025 CHIEF COMPLAINT/INDICATIONFOR SURGICAL PROCEDURE: gerd screening colonoscopy PREOP DIAGNOSIS: GERD, Screen PLANNED PROCEDURE: Operation Date: 08/01/25 08:00 Proposed Procedures p EGD EGD with Biopsy [id number] G0105 Z12.11 R12(Not Applicable) - Chay Winter MD s Colonoscopy(Not Applicable) - Chay Winter MD Medications/Allergies* Home Medications ?Medication ?Instructions ?Recorded ?Confirmed ?Type aspirin 325 mg tablet 325 mg PO DAILY 10/06/22 08/01/25 History buspirone 7.5 mg tablet 7.5 mg PO BID 10/06/22 08/01/25 History coenzyme Q10 200 mg capsule (Co 200 mg PO DAILY 10/06/22 08/01/25 History Q-10) rosuvastatin 20 mg tablet 20 mg PO DAILY 10/06/22 08/01/25 History onabotulinumtoxinA 100 unit 155 unit IM .every 3 mo 11/08/23 08/01/25 History solution for injection (Botox) pramipexole 0.25 mg tablet 0.25 mg PO .qhs 04/02/25 08/01/25 History amlodipine 5 mg tablet 5 mg PO DAILY 07/26/25 08/01/25 History topiramate 100 mg tablet 100 mg PO DAILY 07/26/25 08/01/25 History Allergies/Adverse Reactions Allergy/AdvReac Type Severity Reaction Status Date / Time amoxicillin (From Augmentin) Allergy heart Verified 08/01/25 07:02 racing clavulanic acid (From Allergy heart Verified 08/01/25 07:02 Augmentin) racing red dye Allergy ALGY-Difficulty Verified 08/01/25 07:02 Breathing sulfacetamide (From Allergy unknown Verified 08/01/25 07:02 Sulfacet-R) sulfur (From Sulfacet-R) Allergy unknown Verified 08/01/25 07:02 sumatriptan (From Imitrex) Allergy Heart Verified 08/01/25 07:02 Racing tamsulosin Allergy Unknown Verified 08/01/25 07:02 trazodone Allergy hives Verified 08/01/25 07:02 Current Medications: Generic Name Dose Route Start Last Admin Trade Name Freq PRN Reason Stop Dose Admin Sodium Chloride 1,000 mls @ 15 mls/hr 08/01/25 06:53 08/01/25 07:14 Sodium Chloride 0.9% IV 08/02/25 06:52 15 mls/hr .Q24H PRN Administration COLONOSCOPY FLUIDS Pertinent History/Comorbid Conditions* Medical History (Updated 06/12/25 @ 13:50 by Esther Jaimes LPN) Restless legs syndrome Cervical spondylosis with radiculopathy Chronic migraine without aura, intractable, with status migrainosus Bilateral occipital neuralgia Anxiety Hyperlipidemia Morbid obesity Posttraumatic stress disorder History of uterine cancer Hypertension Surgical History (Updated 04/02/25 @ 13:32 by Jennie Decker MD) History of meniscectomy of left knee History of total right knee replacement History of lumpectomy of left breast benign History of bilateral breast reduction surgery History of appendectomy History of tonsillectomy and adenoidectomy History of cervical spinal surgery C6/7 History of cholecystectomy History of total hysterectomy with bilateral salpingo-oophorectomy (BSO) uterine cancer Family History (Updated 04/02/25 @ 13:34 by Jennie Decker MD) Diabetes Mother CAD (coronary artery disease) Mother Brother Dementia Mother Normal pressure hydrocephalus Father Social History Smoking and tobacco/nicotine status: former use of tobacco/nicotine Quit status (tobacco/nicotine): has quit using Year quit tobacco: 2019 Alcohol intake: never Substance/Drug Use: current Substance/Drug use frequency: few times a month Household members: spouse Marital status: Number of children: 1 Number of grandchildren: 3 Leisure activites: other Leisure activities details: putt-putt, pickle ball Special jose elias needs: No Agree to transfusion: Yes Pertinent Exam Findings alert, oriented x 3, clear to auscultation bilaterally, regular rate & rhythm and procedure specific exam findings abdomen soft, nt, nd Recommendations Risks and benefits of procedure reviewed and Patient/family agree to proceed Surgery/Procedure today Coding Level of Care Code Acute Code for Chg Fwd
[2025-08-01 08:19] VITALS: BP 103/56; PULSE 60; RESP 16; TEMP 36.5; O2SAT 98
--- NOTE | 2025-08-01 09:00 | ANE.PACU2 ---
Inpatient post-anesthesia follow up: Airway intact: Yes Vital signs: Temperature 97.7 F Pulse Rate 60 Respiratory Rate 16 Blood Pressure 103/56 Pulse Oximetry 98 Oxygen Delivery Me thod Room Air Oxygen Flow Rate Fraction of Inspir ed Oxygen Hydration adequate: Yes Nausea and vomiting: No Pain level: 1 Mental status: Baseline
== END 2025-08-01 09:00 | disposition home or self-care (01) ==
PROVIDERS: PCP Family Medicine; Visit Provider Student in an Organized Health Care Education/Training Program
PROC: 0DJ08ZZ Inspection of Upper Intestinal Tract, Via Natural or Artificial Opening Endoscopic (ICD-10-PCS; principal; 2025-08-01 08:00)
PROC: 0DJD8ZZ Inspection of Lower Intestinal Tract, Via Natural or Artificial Opening Endoscopic (ICD-10-PCS; CPT 45378; 2025-08-01 08:00)
DX: Z12.11 Encounter for screening for malignant neoplasm of colon (principal); K21.9 Gastro-esophageal reflux disease without esophagitis; K29.50 Unspecified chronic gastritis without bleeding; Z79.82 Long term (current) use of aspirin; F41.9 Anxiety disorder, unspecified; E78.5 Hyperlipidemia, unspecified; E66.01 Morbid (severe) obesity due to excess calories; Z68.32 Body mass index [BMI] 32.0-32.9, adult; I10 Essential (primary) hypertension; Z85.42 Personal history of malignant neoplasm of other parts of uterus; Z87.891 Personal history of nicotine dependence
CPT/HCPCS: 43239; 88305; 88342; G0121; J2704; J3490; J7030

== ENCOUNTER → 2025-08-23 08:34 | Outpatient (BNVA) | payer MEDICARE, SELFPAY | PROVIDERS: PCP Family Medicine; Visit Provider Student in an Organized Health Care Education/Training Program | DX: Z09 Encounter for follow-up examination after completed treatment for conditions other than malignant neoplasm (principal) | CPT/HCPCS: 99213 ==

== ENCOUNTER → 2025-09-20 07:51 | Outpatient (BNVA) | payer MEDICARE, SELFPAY | PROVIDERS: PCP Family Medicine; Visit Provider Specialist | DX: G43.711 Chronic migraine without aura, intractable, with status migrainosus (principal); M96.1 Postlaminectomy syndrome, not elsewhere classified; M54.81 Occipital neuralgia; R03.0 Elevated blood-pressure reading, without diagnosis of hypertension; F43.10 Post-traumatic stress disorder, unspecified; R53.83 Other fatigue; R59.1 Generalized enlarged lymph nodes; R55 Syncope and collapse; E55.9 Vitamin D deficiency, unspecified; M81.0 Age-related osteoporosis without current pathological fracture | CPT/HCPCS: 64615; J0585; J9999 ==